=== PATIENT | female | born 1950 | race Caucasian/White ===

== ENCOUNTER → 2022-08-25 13:12 | Outpatient (BNVA) | payer MEDICARE, SELFPAY | PROVIDERS: PCP Internal Medicine; Referring Provider Internal Medicine; Visit Provider Internal Medicine | DX: R79.89 Other specified abnormal findings of blood chemistry (principal); M85.80 Other specified disorders of bone density and structure, unspecified site; I10 Essential (primary) hypertension; R63.5 Abnormal weight gain; Z68.34 Body mass index [BMI] 34.0-34.9, adult | CPT/HCPCS: 99204 ==

== ENCOUNTER → 2022-11-10 14:45 | Outpatient (BNVA) | payer MEDICARE, SELFPAY | PROVIDERS: PCP Internal Medicine; Visit Provider Internal Medicine | DX: M85.80 Other specified disorders of bone density and structure, unspecified site (principal); R79.89 Other specified abnormal findings of blood chemistry; I10 Essential (primary) hypertension; R63.5 Abnormal weight gain; Z68.38 Body mass index [BMI] 38.0-38.9, adult | CPT/HCPCS: 36415; 80048; 82306; 82310; 83970; 99214 ==